=== PATIENT | male | born 1985 | race Caucasian/White ===

== ENCOUNTER 2021-03-12 01:28 | Day surgery (SDC) | payer OTHER, SELFPAY ==
[2021-02-24 14:21] VITALS: BMI 31.8
[2021-03-12 07:19] VITALS: BP 138/86; PULSE 60; RESP 20; O2SAT 100; BMI 31.6
[2021-03-12] MEDS: LACTATED RINGERS 1,000 ML 150 ML IV CONT (07:35)
--- NOTE | 2021-03-12 07:59 | P.PNAN_ITS ---
Anes - Initial Pre Proc Eval Procedure: Operation Date: 03/12/21 08:30 Proposed Procedures p Esophagogastroduodenoscopy - Get Nj MD Date/Time: 03/12/21 07:59 Surgeon: Get Nj MD Pre Op Diagnosis: GERD Patient Data Age: 35 Gender: M Height: 1.73 m Weight: 94.2 kg Last Vital Signs Pulse 60 03/12/21 07:19 Resp 20 03/12/21 07:19 BP 138/86 03/12/21 07:19 Pulse Ox 100 03/12/21 07:19 Allergies Allergy/AdvReac Type Severity Reaction Status Date / Time Penicillins Allergy Hives Verified 03/12/21 07:12 Home Medications Medication Instructions Recorded Confirmed Type albuterol sulfate 2 puff INHALATION PRN 02/24/21 02/24/21 History alprazolam 0.5 mg PO PRN 02/24/21 02/24/21 History budesonide-formoterol [Symbicort] 2 puff INHALATION PRN 02/24/21 02/24/21 Histor y fluoxetine 20 mg PO DAILY 02/24/21 02/24/21 History pantoprazole 40 mg PO DAILY 02/24/21 02/24/21 History Patient hx anesthesia problems: none Family hx anesthesia problems: none Results Review: All pre-operative results and documents have been reviewed as part of the pre-operative evaluation. [facility] Past Medical History Medical History (Updated 03/12/21 @ 07:57 by Jerome Harper MD) Anxiety GERD (gastroesophageal reflux disease) Social History Social History Smoking status: Never smoker Alcohol intake: current Alcohol use details: rarely Substance use: never Substance use type: does not use Living arrangements: with family Anes - Eval Final PreProcedure Day of Procedure 03/12/21 07:59 Patient weight: obese Heart: regular rate and rhythm Lungs: clear to auscultation Airway: Mallampati scale class III Neurological: alert and oriented Last oral intake: >/= 8 hours ASA classification: II Emergent: no Anesthetic plan: proceed Anesthesia type and monitoring: general GIVS and standard monitoring Results Review: All pre-operative results and documents have been reviewed as part of the pre-operative evaluation. Informed Consent: The patient's anesthetic plan and its attendant risks and benefits were discussed with the patient/family/POA. Questions were solicited and answers provided to the satisfaction of the patient/family/POA.
--- NOTE | 2021-03-12 08:18 | PM.HPGS ---
History of Present Illness History of Present Illness Consent: Risks, benefits, and alternatives have been discussed and questions answered. Patient agrees to proceed with procedure. Chief complaint: GERD Narrative: Sundeep Lyles is a 35 year old male with gerd on protonix, also intermittent dysphagia for which couple of time had to come to ER and get glucagon but never had EGD Review of Systems Constitutional: Constitutional: Denies headache(s) and Denies weakness Eyes: Eyes: Denies blurry vision ENT: Reports Normal hearing present, Denies headache(s) and Denies neck pain Cardiovascular: Cardiovascular: Denies chest pain and Denies dyspnea Respiratory: Respiratory: Denies dyspnea Gastrointestinal: Gastrointestinal: Reports no additional gastrointestinal complaints Genitourinary: Genitourinary: Denies dysuria Musculoskeletal: Musculoskeletal: Denies neck pain Integumentary/Breasts: Skin/Breast: Denies dry skin Neurologic: Reports Normal hearing present, Denies headache(s) and Denies weakness Psychiatric: Psychiatric: Denies anxiety Endocrine: Endocrine: Denies change in body appearance Hematologic/Lymphatic: Hematologic/Lymphatic: Denies easy bleeding Allergic/Immunologic: Allergic/Immunologic: Denies urticaria PMFSH Past Medical History Medical History (Updated 03/12/21 @ 08:18 by Get Nj MD) Anxiety Dysphagia GERD (gastroesophageal reflux disease) Social History Social History Smoking status: Never smoker Alcohol intake: current Alcohol use details: rarely Substance use: never Substance use type: does not use Living arrangements: with family Meds Home Medications and Allergies Home Medications Medication Instructions Recorded Confirmed Type albuterol sulfate 2 puff INHALATION PRN 02/24/21 02/24/21 History alprazolam 0.5 mg PO PRN 02/24/21 02/24/21 History budesonide-formoterol [Symbicort] 2 puff INHALATION PRN 02/24/21 02/24/21 History fluoxetine 20 mg PO DAILY 02/24/21 02/24/21 History pantoprazole 40 mg PO DAILY 02/24/21 02/24/21 History Allergies Allergy/AdvReac Type Severity Reaction Status Date / Time Penicillins Allergy Hives Verified 03/12/21 07:12 Vital Signs Vital Signs - 24 hr 03/12/21 07:19 Pulse Rate 60 Respiratory Rate 20 Blood Pressure 138/86 Pulse Oximetry 100 Exam Const: General: comfortable and no acute distress HENMT: General nose exam: Normal nares present Eyes: General: appearance normal, both eyes and all related structures Neck: Neck: no JVD Resp: Auscultation: clear to auscultation bilaterally Cardio: Rate: regular rate Rhythm: regular rhythm GI: Inspection: non-distended GI Palp: Yes Soft to palpation Skin: General skin exam: normal color Neuro: General: gait normal Speech: normal speech Extrem: General: normal to inspection Psych: Mental Status: mental status grossly normal Assessment and Plan Assessment and plan (1) GERD (gastroesophageal reflux disease): Code(s): K21.9 - Gastro-esophageal reflux disease without esophagitis Status: Inactive Assessment and Plan: gerd controlled as long as he is using ppi will do egd (2) Dysphagia: Code(s): R13.10 - Dysphagia, unspecified Status: Acute Assessment and Plan: ? EoE, will get biopsies
[2021-03-12 08:40] VITALS: BP 125/94; PULSE 68; RESP 15; O2SAT 100
[2021-03-12 08:50] VITALS: BP 129/94; PULSE 54; RESP 18; O2SAT 100
[2021-03-12 09:00] VITALS: BP 130/84; PULSE 53; RESP 18; O2SAT 100
== END 2021-03-12 09:08 | disposition home or self-care (01) ==
PROVIDERS: PCP Emergency Medicine; Visit Provider Internal Medicine Gastroenterology
PROC: 0DJ08ZZ Inspection of Upper Intestinal Tract, Via Natural or Artificial Opening Endoscopic (ICD-10-PCS; CPT 43235; principal; 2021-03-12 08:30)
DX: K21.9 Gastro-esophageal reflux disease without esophagitis (principal); R13.19 Other dysphagia; K44.9 Diaphragmatic hernia without obstruction or gangrene; K31.84 Gastroparesis; K29.50 Unspecified chronic gastritis without bleeding; F41.9 Anxiety disorder, unspecified; Z79.51 Long term (current) use of inhaled steroids; E66.9 Obesity, unspecified; Z68.36 Body mass index [BMI] 36.0-36.9, adult
CPT/HCPCS: 43239; 88305; J2704; J7120